=== PATIENT | female | born 1985 | race Two or more races ===

== ENCOUNTER 2019-07-18 17:20 | Emergency (ER) | payer SELFPAY ==
--- NOTE | 2019-07-18 17:42 | EDM.PDOC ---
ED HPI GENERAL MEDICAL PROBLEM - General Chief Complaint: General Stated Complaint: PAIN IN UPPER ABDOMEN/14 WK Time Seen by Provider: 07/18/19 17:34 Source of Information: Reports: Patient, Family History Limitations: Reports: No Limitations - History of Present Illness INITIAL COMMENTS - FREE TEXT/NARRATIVE: HISTORY AND PHYSICAL: History of present illness: Patient is a 34-year-old female 14 weeks gestation presents to the ED with complaint of abdominal pain. Patient states she recently moved here from [place] and has not established with OB yet. She did have an US done in June which she states showed a normal intrauterine . She states for the past 2 weeks she has been having upper (points to epigastrum) abdominal pain. She states it is constant but she did have a sharp pain twice in the last 2 weeks. She states she had one episode of vomiting with the sharp pain. She denies fevers, chills, nausea, vomiting, diarrhea, cough, chest pain, shortness of breath, dysuria, hematuria, vaginal bleeding. Review of systems: As per history of present illness and below otherwise all systems reviewed and negative. Past medical history: As per history of present illness and as reviewed below otherwise noncontributory. Surgical history: As per history of present illness and as reviewed below otherwise noncontributory. Social history: No reported history of drug or alcohol abuse. Family history: As per history of present illness and as reviewed below otherwise noncontributory. Physical exam: General: Patient sitting comfortably in no acute distress and nontoxic appearing HEENT: Atraumatic, normocephalic, pupils reactive, negative for conjunctival pallor or scleral icterus, mucous membranes moist, throat clear, neck supple, nontender, trachea midline. No meningeal signs. Lungs: Clear to auscultation, breath sounds equal bilaterally, chest nontender. Heart: S1S2, regular, negative for clicks, rubs, or overt murmur. Abdomen: Gravid uterus. Soft, nondistended, nontender. Negative for masses or hepatosplenomegaly. Negative for costovertebral tenderness. No rigidity, rebound , guarding. Pelvis: Stable nontender. Genitourinary: Deferred. Rectal: Deferred. Extremities: Atraumatic, negative for cords or calf pain. Neurovascular unremarkable. Neuro: Awake, alert, oriented. Cranial nerves II through XII unremarkable. Cerebellum unremarkable. Motor and sensory unremarkable throughout. Exam nonfocal. Notes: FHTs 159. Patient states that famotidine did improve her abdominal pain significantly. Diagnostics: CBC, CMP, FHT Therapeutics: Famotidine 20mg PO Prescriptions: Famotidine Impression: GERD, abdominal pain in Plan: Take antacid as instructed Follow-up with [facility] Return to ED as needed as discussed Definitive disposition and diagnosis as appropriate pending reevaluation and review of above. Upper Abdomen Pain Score (Numeric/FACES): 8 - Related Data Allergies Allergy/AdvReac Type Severity Reaction Status Date / Time No Known Allergies Allergy Verified 07/18/19 17:28 Home Meds: Home Meds Famotidine [Heartburn Relief] 10 mg PO DAILY #20 tablet 07/18/19 [Rx] Non-Formulary Medication [NF Drug] 1 each PO ASDIRECTED PRN 07/18/19 [History] ED ROS GENERAL - Review of Systems Review Of Systems: Comprehensive ROS is negative, except as noted in HPI. ED EXAM, GENERAL - Physical Exam Exam: See Below (see dictation) Course - Vital Signs Last Recorded V/S: Last Vital Signs Temp 98.6 F 07/18/19 17:30 Pulse 88 07/18/19 18:19 Resp 18 07/18/19 18:19 BP 110/57 L 07/18/19 18:19 Pulse Ox 95 07/18/19 18:19 - Orders/Labs/Meds Orders: Active Orders 24 hr Category Date Time Status Heart Tones [RC] ASDIRECTED Care 07/18/19 17:42 Active Labs: Laboratory Tests 07/18/19 07/18/19 Range/Units 18:05 18:05 WBC 11.14 H (4.0-11.0) K/uL RBC 4.63 (4.30-5.90) M/uL Hgb 12.9 (12.0-16.0) g/dL Hct 37.8 (36.0-46.0) % MCV 81.6 (80.0-98.0) fL MCH 27.9 (27.0-32.0) pg MCHC 34.1 (31.0-37.0) g/dL RDW Std Deviation 39.4 (28.0-62.0) fl RDW Coeff of Deepa 13 (11.0-15.0) % Plt Count 322 (150-400) K/uL MPV 10.10 (7.40-12.00) fL Neut % (Auto) 71.8 (48.0-80.0) % Lymph % (Auto) 22.0 (16.0-40.0) % [place] % (Auto) 5.1 (0.0-15.0) % Eos % (Auto) 0.9 (0.0-7.0) % Baso % (Auto) 0.2 (0.0-1.5) % Neut # (Auto) 8.0 H (1.4-5.7) K/uL Lymph # (Auto) 2.5 H (0.6-2.4) K/uL [place] # (Auto) 0.6 (0.0-0.8) K/uL Eos # (Auto) 0.1 (0.0-0.7) K/uL Baso # (Auto) 0.0 (0.0-0.1) K/uL Nucleated RBC % 0.0 /100WBC Nucleated RBCs # 0 K/uL Sodium 139 (136-145) mmol/L Potassium 4.0 (3.5-5.1) mmol/L Chloride 104 (98-107) mmol/L Carbon Dioxide 24.0 (21.0-32.0) mmol/L BUN 11 (7.0-18.0) mg/dL Creatinine 0.6 (0.6-1.0) mg/dL Est Cr Clr Drug Dosing 123.68 mL/min Estimated GFR (MDRD) > 60.0 ml/min Glucose 97 (74-106) mg/dL Calcium 9.3 (8.5-10.1) mg/dL Total Bilirubin 0.1 L (0.2-1.0) mg/dL AST 16 (15-37) IU/L ALT 30 (14-63) IU/L Alkaline Phosphatase 80 (46-116) U/L Total Protein 7.7 (6.4-8.2) g/dL Albumin 3.3 L (3.4-5.0) g/dL Globulin 4.4 H (2.6-4.0) g/dL Albumin/Globulin Ratio 0.8 L (0.9-1.6) Meds: Medications Discontinued Medications Generic Name Dose Route Start Last Admin Trade Name Freq PRN Reason Stop Dose Admin Famotidine 20 mg 07/18/19 18:04 07/18/19 18:18 Pepcid PO 07/18/19 18:05 20 mg ONETIME ONE Administration Departure - Departure Time of Disposition: 18:59 Disposition: Home, Self-Care 01 Condition: Good Clinical Impression: Abdominal pain in - Discharge Information Prescriptions: Famotidine [Heartburn Relief] 10 mg PO DAILY #20 tablet Instructions: Abdominal Pain During , [id number] Referrals: PCP,None [Primary Care Provider] - Forms: ED Department Discharge Additional Instructions: The following information is given to patients seen in the emergency department who are being discharged to home. This information is to outline your options for follow-up care. We provide all patients seen in our emergency department with a follow-up referral. The need for follow-up, as well as the timing and circumstances, are variable depending upon the specifics of your emergency department visit. If you don't have a primary care physician on staff, we will provide you with a referral. We always advise you to contact your personal physician following an emergency department visit to inform them of the circumstance of the visit and for follow-up with them and/or the need for any referrals to a consulting specialist. The emergency department will also refer you to a specialist when appropriate. This referral assures that you have the opportunity for follow-up care with a specialist. All of these measure are taken in an effort to provide you with optimal care, which includes your follow-up. Under all circumstances we always encourage you to contact your private physician who remains a resource for coordinating your care. When calling for follow-up care, please make the office aware that this follow-up is from your recent emergency room visit. If for any reason you are refused follow-up, please contact the [facility] Emergency Department at and asked to speak to the emergency department charge nurse. [facility] [address] [place] [id number] [facility] Primary Care - Women's Health [address] [place] [id number] Take antacid as instructed Follow-up with [facility] [facility] Return to ED as needed as discussed Sepsis Event Note - Evaluation Sepsis Screening Result: No Definite Risk - Focused Exam Vital Signs: Vital Signs Temp Pulse Resp BP Pulse Ox 07/18/19 18:19 88 18 110/57 L 95 07/18/19 17:30 98.6 F 97 18 113/66 98 Date Exam was Performed: 07/18/19 Time Exam was Performed: 19:18 - My Orders Last 24 Hours: My Active Orders 07/18/19 17:42 Heart Tones [RC] ASDIRECTED - Assessment/Plan Last 24 Hours: My Active Orders 07/18/19 17:42 Heart Tones [RC] ASDIRECTED
[2019-07-18] MEDS ORDERED: Famotidine 20 MG Tab PO ONE (18:04)
[2019-07-18 18:31] LABS: BLOOD UREA NITROGEN,BUN 11 mg/dL (7.0-18.0); CHLORIDE,CL 104 mmol/L (98-107); GLUCOSE RANDOM 97 mg/dL (74-106); SODIUM,NA 139 mmol/L (136-145)
== END 2019-07-18 19:10 | disposition home or self-care (01) ==
LOC: MW.ED 17:20
DX: O99.612 Diseases of the digestive system complicating pregnancy, second trimester (principal); K21.9 Gastro-esophageal reflux disease without esophagitis; Z79.899 Other long term (current) drug therapy; Z3A.14 14 weeks gestation of pregnancy
CPT/HCPCS: 36415; 80053; 85025; 99284; A9270

== ENCOUNTER 2020-01-02 13:59 | Inpatient (IN) | payer BC ==
[2020-01-02] MEDS ORDERED: Misoprostol 200 MCG Tab PO PRN (14:40)
[2020-01-02] MEDS ORDERED: Sodium Chloride 0.9% 10 ML Syringe FLUSH PRN (14:40)
[2020-01-02] MEDS ORDERED: Methylergonovine 0.2 MG/1 ML Amp IM PRN (14:40)
[2020-01-02] MEDS ORDERED: Butorphanol 1 MG/ML SDV IVPUSH PRN (14:40)
[2020-01-02] MEDS ORDERED: Lidocaine 1% 50 ML MDV INJECT PRN (14:40)
[2020-01-02] MEDS ORDERED: Nalbuphine 10 MG/1 ML Vial IVPUSH PRN (14:40)
[2020-01-02] MEDS ORDERED: Carboprost Tromethamine 250 MCG/1 ML Amp IM PRN (14:40)
[2020-01-02] MEDS ORDERED: Sodium Chloride 0.9% 10 ML SDV IV PRN (14:40)
[2020-01-02] MEDS ORDERED: Water For Irrigation,Sterile 1,000 ML Container IRR PRN (14:40)
[2020-01-02] MEDS ORDERED: Tranexamic Acid 1,000 MG in Sodium Chloride 0.9% 100 ML IV PRN (14:40)
[2020-01-02] MEDS ORDERED: Sodium Chloride 0.9% 2.5 ML Syringe FLUSH PRN (14:40)
[2020-01-02] MEDS ORDERED: Lactated Ringers 1,000 ML IV SCH (14:45)
[2020-01-02] MEDS ORDERED: Oxytocin/0.9 % Sodium Chloride 30 UNIT/500 ML BAG IV SCH (14:45)
[2020-01-02] MEDS ORDERED: Docusate Sodium 100 MG Cap PO PRN (15:04)
[2020-01-02] MEDS ORDERED: Bisacodyl 10 MG Supp RECTAL PRN (15:04)
[2020-01-02] MEDS ORDERED: oxyCODONE 5 MG Tab PO PRN (15:04)
[2020-01-02] MEDS ORDERED: Lanolin 100% Cream 7 GM Tube TOP PRN (15:04)
[2020-01-02] MEDS ORDERED: Witch Hazel Medicated Pads 40/Jar TOP PRN (15:04)
[2020-01-02] MEDS ORDERED: Acetaminophen 500 MG Tab PO PRN ×2 (15:04)
[2020-01-02] MEDS ORDERED: Benzocaine/Menthol 20%-0.5% Spray 78 GM Cannister TOP PRN (15:04)
[2020-01-02] MEDS ORDERED: Ibuprofen 400 MG Tab PO PRN (15:04)
[2020-01-02] MEDS ORDERED: Ibuprofen 800 MG Tab PO PRN (15:04)
--- NOTE | 2020-01-02 15:06 | PCM.LDHP ---
L&D History of Present Illness - General Date of Service: 01/02/20 Admit Problem/Dx: Patient Status Order with Admit Dx/Problem 01/02/20 14:06 Patient Status [ADT] Routine 01/02/20 14:40 Patient Status [ADT] Routine 01/02/20 15:04 Patient Status [ADT] Routine Admission Diagnosis/Problem Admission Diagnosis/Problem Source of Information: Patient History Limitations: Reports: No Limitations - History of Present Illness Improves with: Reports: None Worsens with: Reports: None Associated Symptoms: Reports: N - Related Data Allergies/Adverse Reactions: Allergies Allergy/AdvReac Type Severity Reaction Status Date / Time No Known Allergies Allergy Verified 01/02/20 14:10 Home Medications: Home Meds Famotidine [Heartburn Relief] 10 mg PO DAILY #20 tablet 07/18/19 [Rx] Non-Formulary Medication [NF Drug] 1 each PO ASDIRECTED PRN 07/18/19 [History] Pnv No.95/Ferrous Fum/Folic AC [ Vitamin Tablet] 1 tab PO DAILY 01/02/20 [History] Past Medical History - Past Health History Medical/Surgical History: Denies Medical/Surgical History - Infectious Disease History Infectious Disease History: Reports: Chicken Pox Social & Family History - Family History Family Medical History: Noncontributory - Caffeine Use Caffeine Use: Reports: None H&P Review of Systems - Review of Systems: Review Of Systems: See Below General: Reports: No Symptoms HEENT: Reports: No Symptoms Pulmonary: Reports: No Symptoms Cardiovascular: Reports: No Symptoms Gastrointestinal: Reports: No Symptoms Genitourinary: Reports: No Symptoms Musculoskeletal: Reports: No Symptoms Skin: Reports: No Symptoms Psychiatric: Reports: No Symptoms Neurological: Reports: No Symptoms Hematologic/Lymphatic: Reports: No Symptoms Immunologic: Reports: No Symptoms L&D Exam - Exam Exam: See Below - Vital Signs Weight: 73.482 kg - OB Specific Contraction Intensity: Moderate Movement: Active Heart Tones: Present Presentation: Vertex - Li Score Li Score Cervix Position: Anterior Li Score Consistency: Soft Li Score Effacement: >80% Li Score Dilation: > 5 cm Li Score 's Station: +1, +2 Li Score Total: 13 - Exam General: Alert, Oriented HEENT: PERRLA, Conjunctiva Clear, EACs Clear, EOMI, Hearing Intact, Mucosa Moist & [place], Nares Patent, Normal Nasal Septum, Posterior Pharynx Clear, TMs Clear Neck: Supple, Trachea Midline Lungs: Clear to Auscultation, Normal Respiratory Effort Cardiovascular: Regular Rate, Regular Rhythm GI/Abdominal Exam: Normal Bowel Sounds, Soft, Non-Tender, No Organomegaly, No Distention, No Abnormal Bruit, No Mass, Pelvis Stable Rectal Exam: Normal Exam, Normal Rectal Tone Genitourinary: Normal external exam, Normal bimanual exam, Normal speculum exam Back Exam: Normal Inspection, Full Range of Motion Extremities: Normal Inspection, Normal Range of Motion, Non-Tender, No Pedal Edema, Normal Capillary Refill Skin: Warm, Dry, Intact Neurological: Cranial Nerves Intact, Reflexes Equal Bilateral Psychiatric: Alert, Normal Affect, Normal Mood Problem List Initiated/Reviewed/Updated: Yes Orders Last 24hrs: Active Orders 24 hr Category Date Time Status Patient Status [ADT] Routine ADT 01/02/20 15:04 Ordered Heart Tones [RC] CONTINUOUS Care 01/02/20 14:40 Active Non Stress Test [RC] PER UNIT ROUTINE Care 01/02/20 14:06 Active Non Stress Test [RC] PER UNIT ROUTINE Care 01/02/20 14:40 Active May Shower [RC] ASDIRECTED Care 01/02/20 14:40 Active May Shower [RC] ASDIRECTED Care 01/02/20 15:04 Ordered Notify Provider [RC] PRN Care 01/02/20 14:40 Active Up ad Carolann [RC] ASDIRECTED Care 01/02/20 14:06 Active Up ad Carolann [RC] ASDIRECTED Care 01/02/20 14:40 Active Up ad Carolann [RC] ASDIRECTED Care 01/02/20 15:04 Ordered Vaginal Exam [RC] Click to Edit Care 01/02/20 14:06 Active Vaginal Exam [RC] PRN Care 01/02/20 14:40 Active Vital Signs [RC] PER UNIT ROUTINE Care 01/02/20 14:06 Active Vital Signs [RC] PER UNIT ROUTINE Care 01/02/20 14:40 Active Vital Signs [RC] PER UNIT ROUTINE Care 01/02/20 15:04 Ordered CBC W/O DIFF,HEMOGRAM [HEME] Routine Lab 01/02/20 14:40 Ordered HEMOGLOBIN/HEMATOCRIT,HH [HEME] Timed Lab 01/03/20 05:11 Ordered RPR (SYPHILIS SERO) W/ RFLX [REF] Routine Lab 01/02/20 14:40 Ordered TYPE AND SCREEN [BBK] Routine Lab 01/02/20 14:40 Ordered Acetaminophen [Tylenol Extra Strength] Med 01/02/20 15:04 Ordered 1,000 mg PO Q4H PRN Acetaminophen [Tylenol Extra Strength] Med 01/02/20 15:04 Ordered 500 mg PO Q4H PRN Benzocaine/Menthol [Dermoplast Pain Relief 20%-0.5% Med 01/02/20 15:04 Ordered Harvest] 78 gm TOP ASDIRECTED PRN Butorphanol [Stadol] Med 01/02/20 14:40 Active 1 mg IVPUSH Q1H PRN Carboprost Tromethamine [Hemabate DS] Med 01/02/20 14:40 Active 250 mcg IM ASDIRECTED PRN Docusate Sodium [Colace] Med 01/02/20 15:04 Ordered 100 mg PO BID PRN Ibuprofen [Motrin] Med 01/02/20 15:04 Ordered 400 mg PO Q4H PRN Ibuprofen [Motrin] Med 01/02/20 15:04 Ordered 800 mg PO Q6H PRN Lactated Ringers [Ringers, Lactated] 1,000 ml Med 01/02/20 14:45 Active IV ASDIRECTED Lanolin [Lansinoh HPA] Med 01/02/20 15:04 Ordered See Dose Instructions TOP ASDIRECTED PRN Lidocaine 1% [Xylocaine 1%] Med 01/02/20 14:40 Active 50 ml INJECT ONETIME PRN Methylergonovine [Methergine] Med 01/02/20 14:40 Active 0.2 mg IM ASDIRECTED PRN Nalbuphine [Nubain] Med 01/02/20 14:40 Active 10 mg IVPUSH Q1H PRN Oxytocin/0.9 % Sodium Chloride [Oxytocin 30 Unit/500 ML Med 01/02/20 14:45 Active -NS] 30 unit in 500 ml IV TITRATE Sodium Chloride 0.9% [Normal Saline] Med 01/02/20 14:40 Active 10 ml IV ASDIRECTED PRN Sodium Chloride 0.9% [Saline Flush] Med 01/02/20 14:40 Active 10 ml FLUSH ASDIRECTED PRN Sodium Chloride 0.9% [Saline Flush] Med 01/02/20 14:40 Active 2.5 ml FLUSH ASDIRECTED PRN Tranexamic Acid [Cyklokapron] 1,000 mg Med 01/02/20 14:40 Active Sodium Chloride 0.9% [Normal Saline] 100 ml IV ONETIME Water For Irrigation,Sterile [Sterile Water for Med 01/02/20 14:40 Active Irrigation] 1,000 ml IRR ASDIRECTED PRN bisacodyL [Dulcolax] Med 01/02/20 15:04 Ordered 10 mg RECTAL ONETIME PRN miSOPROStoL [Cytotec] Med 01/02/20 14:40 Active 200 mcg PO ONETIME PRN oxyCODONE Med 01/02/20 15:04 Ordered 5 mg PO Q2H PRN witch Don [Tucks] Med 01/02/20 15:04 Ordered 1 pad TOP ASDIRECTED PRN Assess Lochia [WOMSER] Per Unit Routine Oth 01/02/20 15:04 Ordered Assess Uterine Involution [WOMSER] Per Unit Routine Oth 01/02/20 15:04 Ordered Scalp Electrode [WOMSER] Per Unit Routine Oth 01/02/20 14:40 Ordered Peripheral IV Discontinue [OM.PC] Routine Oth 01/02/20 15:04 Ordered Peripheral IV Insertion Adult [OM.PC] Routine Oth 01/02/20 14:40 Ordered Resuscitation Status Routine Resus Stat 01/02/20 14:06 Ordered Medication Orders Butorphanol Tartrate (Stadol) 1 mg IVPUSH Q1H PRN PRN Reason: Pain Carboprost Tromethamine (Hemabate Ds) 250 mcg IM ASDIRECTED PRN PRN Reason: Post Hemorrhage Lactated Ringer's (Ringers, Lactated) 1,000 mls @ 150 mls/hr IV ASDIRECTED GOLD Oxytocin/Sodium Chloride (Oxytocin 30 Unit/500 Ml-Ns) 30 unit in 500 mls @ 999 mls/hr IV TITRATE GOLD Tranexamic Acid 1,000 mg/ (Sodium Chloride) 110 mls @ 660 mls/hr IV ONETIME PRN PRN Reason: Bleeding Lidocaine HCl (Xylocaine 1%) 50 ml INJECT ONETIME PRN PRN Reason: Laceration repair Methylergonovine Maleate (Methergine) 0.2 mg IM ASDIRECTED PRN PRN Reason: Post Hemorrhage Misoprostol (Cytotec) 200 mcg PO ONETIME PRN PRN Reason: Post Hemorrhage Nalbuphine HCl (Nubain) 10 mg IVPUSH Q1H PRN PRN Reason: Pain (severe 7-10) Sodium Chloride (Saline Flush) 10 ml FLUSH ASDIRECTED PRN PRN Reason: Keep Vein Open Sodium Chloride (Saline Flush) 2.5 ml FLUSH ASDIRECTED PRN PRN Reason: Keep Vein Open Sodium Chloride (Normal Saline) 10 ml IV ASDIRECTED PRN PRN Reason: IV Use Sterile Water (Sterile Water For Irrigation) 1,000 ml IRR ASDIRECTED PRN PRN Reason: delivery
--- NOTE | 2020-01-03 08:25 | PCM.DCSUM1 ---
Discharge Summary - Hospital Course Free Text/Narrative:: Discharge home. Follow up in the clinic in 6 weeks for routine visit. Diagnosis: Stroke: No Modified [place] Scale: No Symptoms at All Modified Veronique Scale Score: 0 - Discharge Data Discharge Date: 01/03/20 Discharge Disposition: Home, Self-Care 01 Condition: Good - Referral to Home Health Primary Care Physician: Fortunato Neal MD - Discharge Diagnosis/Problem(s) (1) (spontaneous vaginal delivery) SNOMED Code(s): 490825035 ICD Code: O80 - ENCOUNTER FOR FULL-TERM UNCOMPLICATED DELIVERY Status: Acute Priority: High Current Visit: Yes - Patient Instructions Diet: Regular Diet as Tolerated, Drink 8-10+ Glasses/Day Activity: As Tolerated, No Strenuous Activities, Rest and Relax Today Driving: May Drive Today Showering/Bathing: May Shower Notify Provider of: Fever, Increased Pain, Swelling and Redness, Drainage, Nausea and/or Vomiting - Discharge Plan *PRESCRIPTION DRUG MONITORING PROGRAM REVIEWED*: Not Applicable *COPY OF PRESCRIPTION DRUG MONITORING REPORT IN PATIENT [place]: Not Applicable Prescriptions/Med Rec: Ibuprofen [Motrin] 800 mg PO Q6H PRN #90 tablet PRN Reason: Pain Home Medications: Home Meds Famotidine [Heartburn Relief] 10 mg PO DAILY #20 tablet 07/18/19 [Rx] Non-Formulary Medication [NF Drug] 1 each PO ASDIRECTED PRN 07/18/19 [History] Pnv No.95/Ferrous Fum/Folic AC [ Vitamin Tablet] 1 tab PO DAILY 01/02/20 [History] Ibuprofen [Motrin] 800 mg PO Q6H PRN #90 tablet 01/03/20 [Rx] Oxygen Therapy Mode: Room Air Referrals: [facility] [Outside] Fortunato Neal MD [Primary Care Provider] - 02/13/20 2:45 pm - Discharge Summary/Plan Comment DC Time >30 min.: Yes - General Info Date of Service: 01/03/20 Admission Dx/Problem (Free Text: Patient Status Order with Admit Dx/Problem 01/02/20 14:06 Patient Status [ADT] Routine 01/02/20 14:40 Patient Status [ADT] Routine 01/02/20 15:04 Patient Status [ADT] Routine Admission Diagnosis/Problem Admission Diagnosis/Problem Functional Status: Reports: Pain Controlled, Tolerating Diet, Ambulating, Urinating - Review of Systems General: Reports: No Symptoms HEENT: Reports: No Symptoms Pulmonary: Reports: No Symptoms Cardiovascular: Reports: No Symptoms Gastrointestinal: Reports: No Symptoms Genitourinary: Reports: No Symptoms Musculoskeletal: Reports: No Symptoms Skin: Reports: No Symptoms Neurological: Reports: No Symptoms Psychiatric: Reports: No Symptoms - Patient Data Vitals - Most Recent: Last Vital Signs Temp 97.8 F 01/03/20 08:19 Pulse 71 01/03/20 08:19 Resp 16 01/03/20 08:19 BP 103/64 01/03/20 08:19 Pulse Ox 94 L 01/03/20 08:19 Weight - Most Recent: 162 lb 0.001 oz Lab Results - Last 24 hrs: Laboratory Results - last 24 hr 01/02/20 01/02/20 01/02/20 Range/Units 15:05 15:05 15:10 WBC 12.26 H (4.0-11.0) K/uL RBC 4.76 (4.30-5.90) M/uL Hgb 13.7 (12.0-16.0) g/dL Hct 40.7 (36.0-46.0) % MCV 85.5 (80.0-98.0) fL MCH 28.8 (27.0-32.0) pg MCHC 33.7 (31.0-37.0) g/dL RDW Std Deviation 41.8 (28.0-62.0) fl RDW Coeff of Deepa 13 (11.0-15.0) % Plt Count 192 (150-400) K/uL MPV 12.20 H (7.40-12.00) fL Nucleated RBC % 0.0 /100WBC Nucleated RBCs # 0 K/uL SARS-CoV-2 RNA (RT-PCR) NEGATIVE (NEGATIVE) Blood Type O POSITIVE Antibody Screen NEGATIVE 01/03/20 Range/Units 05:43 WBC (4.0-11.0) K/uL RBC (4.30-5.90) M/uL Hgb 12.6 (12.0-16.0) g/dL Hct 37.8 (36.0-46.0) % MCV (80.0-98.0) fL MCH (27.0-32.0) pg MCHC (31.0-37.0) g/dL RDW Std Deviation (28.0-62.0) fl RDW Coeff of Deepa (11.0-15.0) % Plt Count (150-400) K/uL MPV (7.40-12.00) fL Nucleated RBC % /100WBC Nucleated RBCs # K/uL SARS-CoV-2 RNA (RT-PCR) (NEGATIVE) Blood Type Antibody Screen Med Orders - Current: Current Medications Acetaminophen (Tylenol Extra Strength) 500 mg PO Q4H PRN PRN Reason: Pain Acetaminophen (Tylenol Extra Strength) 1,000 mg PO Q4H PRN PRN Reason: Pain Last Admin: 01/03/20 08:11 Dose: 1,000 mg Documented by: Benzocaine/Menthol (Dermoplast Pain Relief 20%-0.5% [place]) 78 gm TOP ASDIRECTED PRN PRN Reason: Perineal Comfort Measure Last Admin: 01/03/20 08:13 Dose: 1 canister Documented by: Bisacodyl (Dulcolax) 10 mg RECTAL ONETIME PRN PRN Reason: Constipation Butorphanol Tartrate (Stadol) 1 mg IVPUSH Q1H PRN PRN Reason: Pain Carboprost Tromethamine (Hemabate Ds) 250 mcg IM ASDIRECTED PRN PRN Reason: Post Hemorrhage Docusate Sodium (Colace) 100 mg PO BID PRN PRN Reason: Constipation Emollient Ointment (Lansinoh Hpa) 0 gm TOP ASDIRECTED PRN PRN Reason: Sore Nipples Last Admin: 01/03/20 08:13 Dose: 7 gm Documented by: Lactated Ringer's (Ringers, Lactated) 1,000 mls @ 150 mls/hr IV ASDIRECTED GOLD Oxytocin/Sodium Chloride (Oxytocin 30 Unit/500 Ml-Ns) 30 unit in 500 mls @ 999 mls/hr IV TITRATE GOLD Tranexamic Acid 1,000 mg/ (Sodium Chloride) 110 mls @ 660 mls/hr IV ONETIME PRN PRN Reason: Bleeding Ibuprofen (Motrin) 400 mg PO Q4H PRN PRN Reason: Pain Ibuprofen (Motrin) 800 mg PO Q6H PRN PRN Reason: Pain Last Admin: 01/02/20 15:35 Dose: 800 mg Documented by: Lidocaine HCl (Xylocaine 1%) 50 ml INJECT ONETIME PRN PRN Reason: Laceration repair Methylergonovine Maleate (Methergine) 0.2 mg IM ASDIRECTED PRN PRN Reason: Post Hemorrhage Last Admin: 01/02/20 15:34 Dose: 0.2 mg Documented by: Misoprostol (Cytotec) 200 mcg PO ONETIME PRN PRN Reason: Post Hemorrhage Nalbuphine HCl (Nubain) 10 mg IVPUSH Q1H PRN PRN Reason: Pain (severe 7-10) Oxycodone HCl (Oxycodone) 5 mg PO Q2H PRN PRN Reason: Pain Sodium Chloride (Saline Flush) 10 ml FLUSH ASDIRECTED PRN PRN Reason: Keep Vein Open Sodium Chloride (Saline Flush) 2.5 ml FLUSH ASDIRECTED PRN PRN Reason: Keep Vein Open Sodium Chloride (Normal Saline) 10 ml IV ASDIRECTED PRN PRN Reason: IV Use Sterile Water (Sterile Water For Irrigation) 1,000 ml IRR ASDIRECTED PRN PRN Reason: delivery Witermelinda aMncia (Tucks) 1 pad TOP ASDIRECTED PRN PRN Reason: comfort care Last Admin: 01/03/20 08:14 Dose: 1 tub Documented by: - Exam General: Reports: Alert, Oriented, Cooperative, No Acute Distress Lungs: Reports: Normal Respiratory Effort Cardiovascular: Reports: Regular Rate, Regular Rhythm GI/Abdominal Exam: Soft, Non-Tender (Female) Exam: Deferred Rectal (Female) Exam: Deferred Back Exam: Reports: Normal Inspection, Full Range of Motion Extremities: Normal Inspection, Normal Range of Motion, Non-Tender, Normal Capillary Refill Skin: Reports: Warm, Dry, Intact Neurological: Reports: No New Focal Deficit, Normal Gait, Normal Speech, Normal Tone, Sensation Intact Psy/Mental Status: Reports: Alert, Normal Affect, Normal Mood
--- NOTE | 2020-01-03 09:35 | OR ---
SURGEON: Fortunato Neal MD DATE OF PROCEDURE: 01/02/2020 Ms. Grove is a 34-year-old patient. She is para 2-0-0-2. She is term. She is followed in our practice jointly by myself and the nurse verification engineer. She presented to Labor and Delivery in active labor. At the time of the presentation to Labor and Delivery, she was 8 to 9 cm, 0 station, with bulging bag of water. The patient did well, I arrived soon, and advanced to complete. Artificial rupture membrane was done with a clear fluid and then the patient was able to push two times to accomplish normal spontaneous vaginal delivery, and fetus cried immediately. score reported to be 8 and 9. The weight is not available. The placenta delivered spontaneous, complete, and intact without any problem. There was no episiotomy needed. There was a minimum heart rate documentation and it was category I. Estimated blood loss was 250 to 300 mL. There was no complication in the labor and the of this patient. BRADY / MARCOS /[id number]
== END 2020-01-03 17:50 | disposition home or self-care (01) | DRG 560 ==
LOC: MW.OBCHECK 13:59 → MW.OB 14:00 → OBSVTOIN 14:48 → MW.OB 14:48
PROVIDERS: ADMIT Obstetrics & Gynecology; ATTEND Obstetrics & Gynecology
PROC: 10E0XZZ Delivery of Products of Conception, External Approach (ICD-10-PCS; principal; 2020-01-02)
PROC: 10907ZC Drainage of Amniotic Fluid, Therapeutic from Products of Conception, Via Natural or Artificial Opening (ICD-10-PCS; 2020-01-02)
DX: O80 Encounter for full-term uncomplicated delivery (principal); Z37.0 Single live birth; Z3A.37 37 weeks gestation of pregnancy; Z20.828 Contact with and (suspected) exposure to other viral communicable diseases
CPT/HCPCS: 36415; 59025; 59409; 85014; 85018; 85027; 86592; 86593; 86850; 86900; 86901; A9270-GY; J2210; U0002